=== PATIENT | female | born 1965 | race Caucasian/White ===

== ENCOUNTER 2018-03-11 08:39 | Day surgery (SDC) | END 2018-03-11 13:25 | disposition home or self-care (01) ==

== ENCOUNTER → 2019-01-19 | Outpatient (CLI) | payer OTHER ==
[~2019-01-19] MED LIST: GEMF600T8 PO
== END | disposition home or self-care (01) ==
LOC: U/S 09:33
PROVIDERS: ATTEND Internal Medicine Hematology & Oncology
DX: E04.1 Nontoxic single thyroid nodule (principal)
CPT/HCPCS: 76536; 88104; 88305; Z7610

== ENCOUNTER 2019-03-03 09:29 | Inpatient (IN) | payer OTHER ==
[2019-03-03] VITALS (19 sets, daily range): BP systolic 99–129; BP diastolic 50–69; PULSE 71–97; RESP 10–20; Ht 167.6 cm; Wt 77.0 kg
[~2019-03-03] VITALS: Ht 167.6 cm; Wt 77.0 kg
[~2019-03-03 09:29] MED LIST changes: +ATOR40TA68 PO; +CHOL10009 ORAL; +PYRI50CA PO
[2019-03-03] MEDS ORDERED: SOD CHLORIDE 0.9% 1,000 ML IV ONE (10:00)
[2019-03-03] MEDS ORDERED: CEFAZOLIN 1 GM/50 ML (PMX) 50 ML IVPB ONE (10:00)
[2019-03-03] MEDS ORDERED: BUPIVACAINE 0.25% (MPF) 30 ML INJ ONE (10:02)
--- NOTE | 2019-03-03 11:34 | PREAC ---
Date/Time of Note Date/Time of Note DATE: 03/03/19 TIME: 11:32 Anesthesia Eval and Record Evaluation Time Pre-Procedure Interview DATE: 03/03/19 TIME: 11:32 Age 53 Sex female NPO: 8 hrs Preoperative diagnosis thyroid cancer Planned procedure total thyroidectomy Past Medical History Past Medical History: Includes Cardio: Dyslipidemia Endo: Diabetes (pre) : Other (uterine cancer) Surgery & Anesthesia Issues No known issue Meds Anticoagulation: No Beta Too within 24 hr: No Reason Beta Too not given: Pt. not on B-Too Reported Medications Atorvastatin* (Atorvastatin*) 40 Mg Tablet, 40 MG PO QHS, #30 TAB 03/03/19 Cholecalciferol (Vitamin D3) 1,000 Unit Capsule, 3000 UNITS ORAL DAILY 03/03/19 Pyridoxine Hcl* (Vitamin B-6*) 50 Mg Capsule, 50 MG PO DAILY, CAP 03/03/19 Discontinued Reported Medications Gemfibrozil* (Gemfibrozil*) 600 Mg Tablet, 600 MG PO DAILY, TAB 03/11/18 Current Medications Sodium Chloride 1,000 ml @ 75 mls/hr [id number] ONCE IV ; Start 03/03/19 at 10:00; Stop 03/03/19 at 23:19 Meds reviewed: Yes Allergies Coded Allergies: No Known Allergy (Unverified , 03/03/19) Allergies Reviewed: Yes Labs/Studies Labs Reviewed: Reviewed by anesthesiologist test: N/A (hysterectomy hx) Studies: ECG (sr), CXR (nl) Pre-procedure Exam Last vitals Vital Signs Date Temp Pulse Resp B/P (MAP) Pulse Ox O2 O2 Flow FiO2 Time Delivery Rate 03/03/19 98.1 74 16 118/69 99 Room Air 10:53 (85) Airway: Adequate mouth opening Mallampati: Mallampati I Teeth: Normal Lung: Normal Heart: Normal ASA Physical Status ASA physical status: 2 Emergency: None Planned Anesthetic General/MAC: ETT Planned Pain Management Parenteral pain med Pre-operative Attestations Prior to commencing anesthesia and surgery, the patient was re-evaluated, there was verification of: *The patient's identity *The results of appropriate recent lab work and preoperative vital signs *The above evaluation not changing prior to induction *Anesthetic plan, risk benefits, alternative and complications discussed with patient/family; questions answered; patient/family understands, accepts and wishes to proceed. THANIA PATEL MD Mar 03, 2019 11:34
[2019-03-03] MEDS ORDERED: ONDANSETRON 4 MG INJ ONE (11:38)
[2019-03-03] MEDS ORDERED: MIDAZOLAM 1 MG/ML 2 ML INJ ONE (11:38)
[2019-03-03] MEDS ORDERED: METOCLOPRAMIDE 10 MG INJ ONE (11:38)
[2019-03-03] MEDS ORDERED: ROCURONIUM 50 MG INJ ONE (11:38)
[2019-03-03] MEDS ORDERED: GLYCOPYRROLATE 0.4 MG INJ ONE (11:38)
[2019-03-03] MEDS ORDERED: NEOSTIGMINE 3 MG/3 ML SYRINGE ONE (11:38)
[2019-03-03] MEDS ORDERED: PROPOFOL 20 ML ONE (11:38)
[2019-03-03] MEDS ORDERED: CEFAZOLIN 1 GM INJ ONE (11:38)
[2019-03-03] MEDS ORDERED: HYDROmorphONE 2 MG/ML SYG ONE (11:38)
[2019-03-03] MEDS ORDERED: ONDANSETRON 4 MG INJ IV PRN (12:00)
[2019-03-03] MEDS ORDERED: HYDROmorphONE 1 MG/5 ML IV SYRINGE IV PRN ×3 (12:00)
[2019-03-03] MEDS ORDERED: FENTAnyl 50 MCG/ML VIAL IV PRN ×3 (12:00)
[2019-03-03] MEDS ORDERED: MEPERIDINE 25 MG INJ IV PRN (12:00)
[2019-03-03] MEDS ORDERED: LABETALOL HCL 20MG INJ IV PRN (12:00)
[2019-03-03] MEDS ORDERED: hydrALAzine 20 MG INJ IV PRN (12:00)
[2019-03-03] MEDS ORDERED: DIPHENHYDRAMINE 50 MG INJ IV PRN (12:00)
[2019-03-03] MEDS ORDERED: EPHEDrine 25 MG/5 ML SYG ONE (13:07)
--- NOTE | 2019-03-03 13:08 | OPR ---
Date/Time of Note Date/Time of Note DATE: 03/03/19 TIME: 13:04 Operative Report Procedure Date: Mar 03, 2019 Preoperative Diagnosis thyroid cancer Postoperative Diagnosis same Operation/Procedure Performed 1. total thyroidectomy 2. localized adjacent tissue transfer with the use of skin flaps 18 sq cm defect of the neck 3. therapeutic injection of subcutaneous local anesthesia Surgeon see signature line [employer]st Brandon Vallecillo Anesthesia Type: general Estimated Blood Loss: 0 - 10 ml's Transfusion none Specimen total thyroid surgical markings single short right superior pole double short right inferior pole single long left superior pole double long left inferior pole Grafts/Implants none Complications none Pt Condition Post Procedure: stable Indications This is a 53-year-old female with papillary thyroid cancer. Unfortunate history of also uterine cancer. She is here for a total thyroidectomy. Risks alternatives benefits and personal were discussed the patient. Patient expressed understanding and consents to the operation. Procedure Description Patient is taken to the OR prepped and draped in usual sterile fashion. Surgical timeout was performed. IV antibiotics given. Call incision was made with a 15 blade. Dissection with cautery was carried down to the platysma and the platysma was divided. Superior inferior platysmal flaps were created. Midline strap muscles were divided. Quintero retractors were placed. Careful dissection is made of the left thyroid lobe. The superior inferior poles were mobilized. Middle thyroidal vein is ligated with handheld LigaSure. Firm hard nodule was identified very close to recurrent laryngeal nerve. The other side is also examined by mobilizing the right superior and inferior poles. The middle thyroidal vein is ligated and divided. The right thyroid lobe was mobilized not dissected off the trachea. The retro-is small spaces bluntly dissected out with tonsils and mobilized. Careful attention was paid to the left side as the thyroid cancer appears to be almost encasing into the recurrent laryngeal nerve. Decision was made to get through the area of the nodule away from the recurrent laryngeal nerve and this was also reflected off. Surgical markings of single short right superior pole double short right inferior pole single long left superior pole double long left inferior pole. The surgical site was irrigated and a Valsalva maneuver of 40 cm of water was performed and held. There is no evidence of any bleeding. Irrigation was suctioned out and the strap muscles were reapproximated with interrupted 3-0 Vicryl. Platysma was closed with localization just transfer with use of skin flaps in a superior inferior flap. This was all closed in a multilayer fashion with multiple interrupted 3-0 Vicryl. The skin was then closed with running 4-0 Monocryl. Therapeutic contains local anesthesia was injected at the incision site. Dry dressings were applied. Rogelio POTTS Mar 03, 2019 13:08
[2019-03-03] MEDS ORDERED: HYDROCODONE/APAP (5/325) TAB PO PRN (13:30)
[2019-03-03] MEDS ORDERED: CEFAZOLIN 2 GM/50 ML (PMX) 50 ML IVPB SCH (13:30)
[2019-03-03] MEDS ORDERED: HYDROCODONE/APAP (5/325) TAB PO ONE (13:30)
[2019-03-03] MEDS ORDERED: morphine 2 MG INJ IV PRN (13:30)
[2019-03-03] MEDS: LACTATED RINGER'S 1,000 ML IV SCH (14:49)
[2019-03-03] MEDS: CEFAZOLIN 2 GM/50 ML (PMX) 50 ML IVPB SCH (17:45)
--- NOTE | 2019-03-03 20:02 | PAC ---
Date/Time of Note Date/Time of Note DATE: 03/03/19 TIME: 20:02 Post-Anesthesia Notes Post-Anesthesia Note Last documented vital signs Vital Signs Date Temp Pulse Resp B/P (MAP) Pulse Ox O2 O2 Flow FiO2 Time Delivery Rate 03/03/19 98.1 88 16 108/56 100 Room Air 16:45 (73) 03/03/19 98.1 15:05 03/03/19 3.0 14:26 Activity: WNL Respiratory function: WNL Cardiovascular function: WNL Mental status: Baseline Pain reasonably controlled: Yes Hydration appropriate: Yes Nausea/Vomiting absent: No THANIA PATEL MD Mar 03, 2019 20:02
[2019-03-04] MEDS: LACTATED RINGER'S 1,000 ML IV SCH ×2 (01:47→09:02)
[2019-03-04] MEDS: CEFAZOLIN 2 GM/50 ML (PMX) 50 ML IVPB SCH ×2 (01:51→10:32)
[2019-03-04 08:20] VITALS: BP 106/56; PULSE 68; RESP 18
--- NOTE | 2019-03-04 12:11 | HP ---
Date/Time of Note Date/Time of Note DATE: 03/04/19 TIME: 12:10 Assessment/Plan VTE [place]axis [place] [facility] [place]: 5 [place] [facility] [place] Yes Pharmacological prophylaxis: LMWH Lines/Catheters IV Catheter Type (from [facility]): Peripheral IV Assessment/Plan Hospital Course 1) thyroid cancer - s/p total thyroidectomy 2) hyperlipidemia - continue meds Result Diagram: 03/04/19 0442 03/04/19 0442 Results 24hrs Laboratory Tests Test 03/03/19 14:16 03/04/19 04:42 03/04/19 08:03 White Blood Count 6.9 5.6 Red Blood Count 4.00 L 3.91 L Hemoglobin 10.9 L 10.6 L Hematocrit 35.5 L 34.6 L Mean Corpuscular Volume 88.8 88.5 Mean Corpuscular Hemoglobin 27.3 L 27.1 L Mean Corpuscular Hemoglobin Concent 30.7 L 30.6 L Red Cell Distribution Width 14.9 H 15.3 H Platelet Count 155 # 161 Mean Platelet Volume 10.7 H 11.0 H Immature Granulocytes % 0.600 H 0.400 Neutrophils % 65.9 58.0 Lymphocytes % 26.1 30.8 Monocytes % 6.8 9.7 Eosinophils % 0.3 1.1 Basophils % 0.3 0.0 Nucleated Red Blood Cells % 0.0 0.0 Immature Granulocytes # 0.040 H 0.020 Neutrophils # 4.6 3.2 Lymphocytes # 1.8 1.7 Monocytes # 0.5 0.5 Eosinophils # 0.0 0.1 Basophils # 0.0 0.0 Nucleated Red Blood Cells # 0.0 0.0 Sodium Level 143 143 Potassium Level 3.9 4.0 Chloride Level 109 104 Carbon Dioxide Level 26 31 Anion Gap 8 8 Blood Urea Nitrogen 11 6 L Creatinine 0.63 0.62 Est Glomerular Filtrat Rate mL/min > 60 > 60 Glucose Level 118 114 Calcium Level 8.9 8.6 Total Bilirubin 0.3 0.4 Direct Bilirubin 0.00 0.00 Indirect Bilirubin 0.3 0.4 Aspartate Amino Transf (AST/SGOT) 22 23 Alanine Aminotransferase (ALT/SGPT) 37 27 Alkaline Phosphatase 67 59 Total Protein 6.5 6.8 Albumin 3.8 3.7 Globulin 2.70 3.10 Albumin/Globulin Ratio 1.40 1.19 Lab Scanned Report REFERENCE LAB HPI/ROS Admit Date/Time Admit Date/Time Mar 03, 2019 at 13:02 Hx of Present Illness Patient with history of hyperlipidemia is here for total thyroidectomy because of papilary thyroid cancer. Patient underwent surgery and is now receiving postoperative care. PMH/Family/Social Past Medical History Medical History: high cholesterol Medications Current Medications Morphine Sulfate (morphine) 2 mg Q2H PRN IV PAIN LEVEL 6-10; Start 03/03/19 at 13:30 Acetaminophen/ Hydrocodone Bitart ([place] (5/325)) 1 tab Q6H PRN PO PAIN LEVEL 6-10 Last administered on 03/04/19at 08:53; Admin Dose 1 TAB; Start 03/03/19 at 13:30 Lactated Ringer's 1,000 ml @ 100 mls/hr Q10H IV Last administered on 03/04/19at 01:47; Admin Dose 100 MLS/HR; Start 03/03/19 at 13:02 Coded Allergies: No Known Allergy (Unverified , 03/03/19) Social History Smoking Status: Never smoker Exam/Review of Systems Vital Signs Vitals Vital Signs Date Temp Pulse Resp B/P (MAP) Pulse Ox O2 O2 Flow FiO2 Time Delivery Rate 03/04/19 Nasal 2.0 08:30 Cannula 03/04/19 98.8 68 18 106/56 99 08:20 (73) Intake and Output 03/03/19 03/03/19 03/04/19 1515:00 23:00 07:00 IntakeIntake Total 1380 ml 350 ml 1450 ml OutputOutput Total 10 ml BalanceBalance 1370 ml 350 ml 1450 ml Exam Constitutional: well developed Head: normocephalic, atraumatic Neck: supple Respiratory: diminished breath sounds Cardiovascular: regular rate and rhythm Gastrointestinal: soft, non-tender Extremities: normal pulses DOREEN COLE Mar 04, 2019 12:11
--- NOTE | 2019-03-04 14:24 | PN ---
DATE: 03/04/2019 Postop day #1 status post total thyroidectomy. SUBJECTIVE: No specific complaint. Has had regular diet as tolerated. OBJECTIVE: VITAL SIGNS: Temperature maximum 98.8, heart rate 68, respiration 18, blood pressure 106/56, saturation 99% on 2 liter nasal cannula. LABORATORY DATA: Sodium, potassium normal, BUN and creatinine normal. Hematology today WBC 5600 with 58% neutrophils, hemoglobin 10.6, hematocrit 34.6. Calcium yesterday afternoon after operation, it was 8.9, today at 5:00 a.m., it has been 8.6. PHYSICAL EXAMINATION: Clinically alert, awake, oriented, no acute distress. Dressing is intact and the wound there is no swelling of the neck. The patient's voice is normal. ASSESSMENT:status post total thyroidectomy. PLAN: Will check another calcium level stat and if that is normal, the patient can be discharged home today. To be followed by Dr. Burt in the office. I instructed the nurse and I ordered a calcium level stat and when she has the result, she is going to call me. Dictated By: BIMAL PETERS MD PS/NTS Conf#: [id number] DID#: [id number] CC: PAKO COSTA MD;*EndCC* MTDD
[2019-03-04 14:34] VITALS: BP 104/60; PULSE 91; RESP 18
--- NOTE | 2019-03-07 13:16 | DS ---
Date/Time of Note Date/Time of Note DATE: 03/07/19 TIME: 13:15 Discharge Summary Admission/Discharge Info Admit Date/Time Mar 03, 2019 at 13:02 Discharge Date/Time Mar 04, 2019 at 16:50 Discharge Diagnosis thyroid cancer Patient Condition: Fair Consults surgery Procedures thyroidectomy Hx of Present Illness Patient with history of hyperlipidemia is here for total thyroidectomy because of papilary thyroid cancer. Patient underwent surgery and is now receiving postoperative care. Hospital Course Patient with history of hyperlipidemia is here for total thyroidectomy because of papilary thyroid cancer. Patient underwent surgery and is now receiving postoperative care. Once patient was felt to be stable, she was sent home. 1) thyroid cancer - s/p total thyroidectomy 2) hyperlipidemia - continue meds Home Meds Reported Medications Atorvastatin* (Atorvastatin*) 40 Mg Tablet, 40 MG PO QHS, #30 TAB 03/03/19 Cholecalciferol (Vitamin D3) 1,000 Unit Capsule, 3000 UNITS ORAL DAILY 03/03/19 Pyridoxine Hcl* (Vitamin B-6*) 50 Mg Capsule, 50 MG PO DAILY, CAP 03/03/19 Discontinued Reported Medications Gemfibrozil* (Gemfibrozil*) 600 Mg Tablet, 600 MG PO DAILY, TAB 03/11/18 Primary Care Provider Not On Staff Doctor DOREEN COLE Mar 07, 2019 13:16
== END 2019-03-04 16:50 | disposition home or self-care (01) | DRG 624 ==
LOC: SDS 09:29 → REC 13:02 → MS1 14:43
PROVIDERS: ADMIT Internal Medicine; ATTEND Surgery
PROC: 0HX4XZZ Transfer Neck Skin, External Approach (ICD-10-PCS; 2019-03-03)
PROC: 0GTK0ZZ Resection of Thyroid Gland, Open Approach (ICD-10-PCS; principal; 2019-03-03 12:00)
DX: C73 Malignant neoplasm of thyroid gland (principal); Z85.42 Personal history of malignant neoplasm of other parts of uterus; E78.5 Hyperlipidemia, unspecified
CPT/HCPCS: 80053; 82310; 85025; 88307; J0690; J1170; J2250; J2405; J2710; J2765; J3010; J7120